=== PATIENT | female | born 1945 | race African-American/Black ===

== ENCOUNTER → 2016-10-05 | Outpatient (CLI) | payer OTHER | LOC: RAD 09:50 | DX: Z12.31 Encounter for screening mammogram for malignant neoplasm of breast (principal) ==

== ENCOUNTER → 2017-11-21 | Outpatient (CLI) | payer OTHER | LOC: RAD 09:33 | DX: Z12.31 Encounter for screening mammogram for malignant neoplasm of breast (principal) ==

== ENCOUNTER → 2017-11-29 | Outpatient (CLI) | payer OTHER | LOC: RAD 01:32 | DX: R92.1 Mammographic calcification found on diagnostic imaging of breast (principal) ==